=== PATIENT | male | born 1960 | race Caucasian/White ===

== ENCOUNTER → 2020-10-31 | Outpatient (CLI) | payer SELFPAY | LOC: COL.RAD 11:07 | DX: J98.4 Other disorders of lung (principal); R06.09 Other forms of dyspnea ==

== ENCOUNTER → 2020-11-29 | Outpatient (CLI) | payer SELFPAY | LOC: COL.PUL 08:15 | DX: J44.9 Chronic obstructive pulmonary disease, unspecified (principal); F17.210 Nicotine dependence, cigarettes, uncomplicated ==

== ENCOUNTER → 2023-10-10 | Outpatient (CLI) | payer BC ==
[~2023-10-10] MED LIST: Iohexol 300 - 10 ML VIAL ONE
== END ==
LOC: MHCPAIN 14:31
DX: M46.1 Sacroiliitis, not elsewhere classified (principal); M53.3 Sacrococcygeal disorders, not elsewhere classified; M54.50 Low back pain, unspecified
CPT/HCPCS: G0260; J0665; J1040; Q9967

== ENCOUNTER → 2023-11-12 | Outpatient (CLI) | payer BC | LOC: MHCPAIN 10:35 | DX: M47.816 Spondylosis without myelopathy or radiculopathy, lumbar region (principal); M54.50 Low back pain, unspecified; M53.3 Sacrococcygeal disorders, not elsewhere classified | CPT/HCPCS: G0463 ==

== ENCOUNTER → 2023-11-21 | Outpatient (CLI) | payer BC | LOC: MHCPAIN 11:06 | DX: M47.817 Spondylosis without myelopathy or radiculopathy, lumbosacral region (principal); M54.50 Low back pain, unspecified ==